=== PATIENT | female | born 1925 | race Caucasian/White ===

== ENCOUNTER → 2016-08-24 | Outpatient (CLI) | payer MEDICARE, OTHER ==
[~2016-08-24] MED LIST: ACET-62 PO; AMLO10TA2 PO; ASPI-557 PO; ATEN25TA PO; HYDR-4246 PO; HYDR25TA PO; LISI10TA7 PO; MULT1TAB69 PO; OMEP20CA10 PO; POLY17PO18 PO; PRAM0.253 PO; SODI473S9 TOP; VANC1VIA IV
[2016-08-24 12:31] LABS: BLOOD, URINE 1+ (NEGATIVE); COLOR,URINE YELLOW (YELLOW); LEUKOCYTE ESTERASE ,URINE 1+ (NEGATIVE); NITRITE,URINE NEGATIVE (NEGATIVE); UROBILINOGEN,URINE 0.2 EU/DL (NORMAL)
[2016-08-24 12:48] LABS: BACTERIA,URINE 3+ (NEGATIVE); RBC,URINE 0-1 /HPF (0-3); SQUAMOUS EPITHELIAL CELL,UR NONE SEEN; WBC,URINE 50-200 /HPF (0-5)
== END ==
LOC: LABN.A1213 12:17
PROVIDERS: ATTEND Nurse Practitioner
DX: N39.0 Urinary tract infection, site not specified (principal); R82.99 Other abnormal findings in urine
CPT/HCPCS: 81001; 87086; 87088; 87186